=== PATIENT | male | born 1990 | race Caucasian/White ===

== ENCOUNTER 2017-03-22 03:44 | Emergency (ER) | payer OTHER ==
[~2017-03-22] VITALS: Ht 180.3 cm; Wt 93.2 kg
[~2017-03-22 03:44] MED LIST: SULF-228 PO
[2017-03-22 03:54] VITALS: BP 135/80
[2017-03-22] MEDS ORDERED: EYE WASH 120 ML BTL OU ONE (04:00)
[2017-03-22] MEDS ORDERED: FLUORESCEIN (FLUOR-I-STRIPS) 1 MG STRIP OU ONE (04:00)
[2017-03-22] MEDS ORDERED: TETRACAINE 0.5% OPHTHALMIC SOLUTION 4 ML BTL OU ONE (04:00)
[2017-03-22] MEDS ORDERED: HYDR-3702 PO (04:30)
[2017-03-22] MEDS ORDERED: ED- HYDROcodone/ACETAMINOPHEN 5MG/325MG (NORCO) 6 TABLETS/BTL PO ONE (04:30)
[2017-03-22] MEDS ORDERED: ED- CIPROFLOXACIN 0.3% OPHTHALMIC DROPS (CILOXAN) 2.5 ML BTL OU ONE (04:35)
[2017-03-22] MEDS ORDERED: ED- CIPROFLOXACIN 0.3% OPHTHALMIC DROPS (CILOXAN) 2.5 ML BTL OD ONE (09:00)
== END 2017-03-22 04:45 | disposition home or self-care (01) ==
LOC: ED 03:46
DX: T15.01XA Foreign body in cornea, right eye, initial encounter (principal); W20.8XXA Other cause of strike by thrown, projected or falling object, initial encounter; Y93.89 Activity, other specified; Y92.79 Other farm location as the place of occurrence of the external cause
CPT/HCPCS: 65220; 65222; 99282; 99283